=== PATIENT | female | born 1985 | race Hispanic/Latino ===

== ENCOUNTER 2017-11-14 13:33 | Emergency (ER) | payer SELFPAY ==
[2017-11-14] MEDS ORDERED: DEXAMETHASONE SOD PHOSPHATE 10MG/ML 1ML VIAL ONE (14:05)
[2017-11-14] MEDS ORDERED: ACETAMINOPHEN-CODEINE ELIXIR 5 ML UDCUP ONE ×2 (14:06→14:10)
[2017-11-14] MEDS ORDERED: IPRATROPIUM/ALBUTEROL SULFATE 3 ML SOLUTION IH ONE (14:06)
== END 2017-11-14 15:21 | disposition home or self-care (01) ==
LOC: EDH 13:33
DX: J20.9 Acute bronchitis, unspecified (principal); R11.10 Vomiting, unspecified; R42 Dizziness and giddiness; E11.9 Type 2 diabetes mellitus without complications; E78.5 Hyperlipidemia, unspecified; Z79.899 Other long term (current) drug therapy
CPT/HCPCS: 71046; 94640; 96372; 99284; J1100

== ENCOUNTER 2018-12-13 20:21 | Emergency (ER) | payer OTHER | END 2018-12-13 21:18 | disposition home or self-care (01) | LOC: EDH 20:21 | DX: G89.29 Other chronic pain (principal); M54.6 Pain in thoracic spine; M54.2 Cervicalgia; E11.9 Type 2 diabetes mellitus without complications; E78.5 Hyperlipidemia, unspecified | CPT/HCPCS: 99281 ==